=== PATIENT | female | born 1970 | race Caucasian/White ===

== ENCOUNTER → 2024-08-02 06:37 | Outpatient (REF) | payer OTHER, SELFPAY | LOC: PAVMRI 06:37 | PROVIDERS: ATTENDING PHYSICIAN Orthopaedic Surgery | DX: M24.811 Other specific joint derangements of right shoulder, not elsewhere classified (principal) | CPT/HCPCS: 73221 ==

== ENCOUNTER 2025-06-08 13:19 | Emergency (ER) | payer OTHER, SELFPAY ==
[2025-06-08 13:23] VITALS: BP 139/81
--- NOTE | 2025-06-08 13:31 | EDRN ---
Patient told this RN that she could not wait in ER to be seen and requested we call her from the ICU because she needs to stay with her son. Per the patient her is not here to sit with their underage on who is the patient in icu. 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
Letitia called ICU and the staff told her the is at the bedside so the patient has parental coverage. Patient aware she is to wait in the ED as we are liable for her care and safety as a patient.
--- NOTE | 2025-06-08 16:06 | ED.GENMED ---
History of Present Illness
General
Chief Complaint: DVT/Possible Blood Clot
Time Seen by Provider: 06/08/25 16:00
History of Present Illness
History of Present Illness:
55-year-old female presents the emergency department for evaluation of bilateral leg discomfort but particularly right calf pain, she is concerned for possible DVT given that she flew from [facility] within the past month. Pain is occasionally
waking her up from sleep and she feels intense cramping in the right calf. She does note that she 'bruised' her calf with luggage while traveling. No distal paresthesias or fevers
Past History
Past History
ED Past Medical History: Cancer (Breast CA), HTN and Other (POTS)
ED Past Surgical History: Gynecological (Bilateral Mastectomy)
Social History
Tobacco: Former smoker
Alcohol: Occasional
Personal:
Living: with family
Family History
Family History: Negative Diabetes, Hypertension, Early CAD, Asthma or Cancer
Review of Systems
Review of Systems
Allergies reviewed?: Yes
All Other Systems: ROS reviewed and negative except as documented in HPI and ROS
Phy Exam
Physical Exam
Physical Exam:
GEN: Well appearing, NAD, WDWN
HEENT: Oral mucosa moist, no scleral icterus
Cardiac: Regular rate
Lung: No respiratory distress, no tachypnea
MSK: Small ecchymotic area to the right calf with induration, negative Homans' sign bilaterally, no edema, strong DP pulses bilaterally
Skin: Good color, no pallor or jaundice, no rashes
Neuro: AO x3, moves all extremities freely
Psych: Calm, cooperative
Course
Orders/Labs/Results
Orders:
Orders
06/08/25 13:28
US Periph Venous LOWER Ext Neo Urgent
Comment:
Reason For Exam: B/L LE pain and swelling with recent travel
Vital Signs
Initial and Last Documented VS:
Initial Vital Signs
Temp Pulse Resp BP Pulse Ox
98.1 F 85 16 139/81 98
06/08/25 13:23 06/08/25 13:23 06/08/25 13:23 06/08/25 13:23 06/08/25 13:23
Last Documented Vital Signs
Temp Pulse Resp BP Pulse Ox
98.1 F 85 16 139/81 98
06/08/25 13:23 06/08/25 13:23 06/08/25 13:23 06/08/25 13:23 06/08/25 16:07
MDM/Problems Addressed
MDM/Problems Addressed:
Ultrasound is unremarkable, the ecchymotic area on her calf correlates with the echogenic focus on ultrasound likely indicating a hematoma, discussed supportive care
*Pulse Oximetry
SaO2: 98
Oxygen Mode of Delivery: Room air
Patient hypoxic: no
*Critical Care Note
Total Time (30-74mins, 75-104mins- exclusive of procedures): Not Applicable
ED Attending Note
-
Portions of this chart may have been created with voice recognition software.� Occasional wrong word or��sound alike� substitutions may have occurred due to the inherent limitations of voice recognition software.
Discharge Plan
Departure
Patient Disposition: Home (Routine Discharge)
Date of Disposition: 06/08/25
Time of Disposition: 16:06
Patient with high blood pressure during this ER visit?: No
Discharge Problem:
Right calf Hematoma
Instructions: Hematoma
Prescriptions:
No Action
No Meds [No Current Medications]
ondansetron [Zofran ODT] 8 MG tablet,disintegrating
8 mg PO Q6HPRN PRN (Reason: nausea) Qty: 14 0RF
prednisone 50 MG tablet
50 mg PO DAILY Qty: 4 0RF
aueatagzzfia-hlwpiczvi-zdbppzw [Promethazine VC-Codeine] 118 ML syrup
5 ml PO Q6 PRN (Reason: Cough) Qty: 120 0RF
Interventions
Interventions:
*Risk Screen - Suicide Last Done: 06/08/25 13:23
*General Assessment Last Done: 06/08/25 13:23
*Neglect/Abuse Screening Last Done: 06/08/25 13:23
*ED COVID-19 Vaccine History Last Done: 06/08/25 13:23
*Nursing Disposition Last Done: 06/08/25 16:46
Discharge Date and Time
Discharge Date/Time: 06/08/25 16:46
Print Language: GREENLANDIC
== END 2025-06-08 16:46 | disposition home or self-care (01) ==
LOC: EMR 13:19
PROVIDERS: EMERGENCY PHYSICIAN Emergency Medicine; FAMILY PHYSICIAN Family Medicine
DX: S80.11XA Contusion of right lower leg, initial encounter (principal); X58.XXXA Exposure to other specified factors, initial encounter; M79.661 Pain in right lower leg; I10 Essential (primary) hypertension; G90.A Postural orthostatic tachycardia syndrome [POTS]; Z82.49 Family history of ischemic heart disease and other diseases of the circulatory system; Z85.3 Personal history of malignant neoplasm of breast; Z87.891 Personal history of nicotine dependence; Z90.13 Acquired absence of bilateral breasts and nipples
CPT/HCPCS: 99284; 93970

== ENCOUNTER → 2025-08-05 06:52 | Outpatient (REF) | payer OTHER, SELFPAY | LOC: MRI 3T 06:52 | PROVIDERS: ATTENDING PHYSICIAN Family Medicine; FAMILY PHYSICIAN Family Medicine | DX: H53.9 Unspecified visual disturbance (principal); R51.0 Headache with orthostatic component, not elsewhere classified | CPT/HCPCS: 70551 ==